=== PATIENT | female | born 1970 | race Caucasian/White ===

== ENCOUNTER 2016-08-31 07:45 | Emergency (ER) | payer OTHER ==
--- NOTE | 2016-08-31 08:37 | RAD ---
ANKLE-RIGHT 3 VIEW COMPARISON: Right ankle 3 views, 12/12/2005 HISTORY: The patient fell this morning and twisted her right ankle. Initial encounter. FINDINGS Views: Right ankle AP, mortise, lateral. Bones: There are 2 fractures of the distal right fibula: Nondisplaced oblique fracture, distal diaphysis at the distal syndesmosis level and nondisplaced fracture at the tip of the lateral malleolus. Joints: Normal Soft tissues: Lateral ankle soft tissue swelling. IMPRESSION: 1. There are 2 nondisplaced fractures of the distal right fibula: Oblique fracture at the distal diaphysis at the distal syndesmosis level a second fracture at the tip of the lateral malleolus.
== END 2016-08-31 09:14 | disposition home or self-care (01) ==
LOC: ED 07:45
DX: S82.434A Nondisplaced oblique fracture of shaft of right fibula, initial encounter for closed fracture (principal); G43.909 Migraine, unspecified, not intractable, without status migrainosus; Z88.8 Allergy status to other drugs, medicaments and biological substances; W01.0XXA Fall on same level from slipping, tripping and stumbling without subsequent striking against object, initial encounter